=== PATIENT | male | born 1955 | race Caucasian/White ===

== ENCOUNTER 2018-12-14 07:11 | Day surgery (SDC) | payer BC ==
--- NOTE | 2018-11-16 17:32 | HISTORY AND PHYSICAL ---
DATE OF SERVICE: COLONOSCOPY HISTORY AND PHYSICAL DATE OF ADMISSION: 11/19/2018 HISTORY OF PRESENT ILLNESS: The patient is a 63-year-old white male who had initially seen on 04/06 after an episode of nausea, vomiting and diarrhea. He was due for a surveillance colonoscopy as he had a past history of adenomatous polyps, last colonoscopy being in 2010. He had been scheduled within the month, but wanted to reschedule to December. After today's visit, he was ultimately scheduled for 12/14. He reported on Thursday about 2 hours after having a rather large portion of Artichoke dip with green onion, potato chips, had some abdominal distention followed by diarrhea and gas. He denied any associated blood, but did have some cramping, mild in nature. He had no chills or fever and he has had no recent antibiotic usage. After discussion and offering of an earlier time then is scheduled time on the that was moved to this date. PAST MEDICAL HISTORY: Significant for adenomatous colonic polyps, removed in 2010. He has a history of multinodular goiter, on thyroid suppression since the . He has history of prostate cancer status post robotic surgery in 2007. He has a history of sleep apnea and reports that his machine is a little over 15 years ago and inquires about a new machine. Reports that he feels that his sleep is restful and denies daytime somnolence. PHYSICAL EXAMINATION: GENERAL: Reveals a pleasant overweight white male in no acute distress. Weight was actually down 1 pound from one month ago. VITAL SIGNS: Blood pressure 140/100 at the beginning of the interview 130/84. HEENT: Unremarkable. Sclerae nonicteric. CHEST: Clear to auscultation. CARDIOVASCULAR: Reveals a regular rate and rhythm without murmur, S3 or S4. ABDOMEN: Soft, supple. There is mild generalized discomfort to palpation without rebound or guarding. No distention is noted. No mass or organomegaly is noted. EXTREMITIES: Reveal no cyanosis, clubbing or edema. ASSESSMENT AND PLAN: 1. The patient was set up for surveillance colonoscopy due to intermittent diarrhea and past history of adenomatous colonic polyps. Did discuss lactose intolerance issues as well as fatty intolerance, he was strongly advised to avoid large lactose that food portions. Further recommendations pending colonoscopy evaluation. 2. Obstructive sleep apnea with antiquated equipment. The patient was referred to Dr. Danielle after discussion. Little over 20 minutes of my [id number] care time was spent not including dictation with another 15 minutes of staff time or greater setting of the procedure and going over the prep instructions and obtaining consultation with Dr. Danielle for likely outpatient sleep study to upgrade equipment that is quite old. We will see him back for followup in 4 months. 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
[~2018-12-14] VITALS: Ht 182.9 cm; Wt 103.4 kg
[~2018-12-14 07:11] MED LIST: BELLADONNA ALK; CETI10TA17; IRBE1TAB18 PO; LORA0.5T; LVT.112T; OLAN15TA3; [UNRECOGNIZED DRUG - OTHER]
[2018-12-14] MEDS ORDERED: D5 LR IV SOLUTION 1,000 ML IV ONE (07:14)
[2018-12-14] MEDS ORDERED: fentaNYL INJECTION 100 MCG/2 ML AMP ONE (07:30)
[2018-12-14] MEDS ORDERED: LIDOCAINE JELLY 2% 6 ML SYRINGE ONE (07:30)
[2018-12-14] MEDS ORDERED: MIDAZOLAM 2 MG/2 ML (VERSED) VIAL ONE ×2 (07:30)
--- NOTE | 2018-12-14 07:40 | Pre-Op Note & Conscious Sedat ---
Pre-Operative Progress Note H&P Reviewed The H&P was reviewed, patient examined and no changes noted. Date H&P Reviewed: Dec 14, 2018 Time H&P Reviewed: 07:30 Conscious Sedation Pre-Proced ASA Score 2 For ASA 3 and 4: Consider anesthesia and medical clearance. Also, for patients with a history of failed moderate sedation consider anesthesia. Airway Lungs Heart ASA score ASA 1: a normal healthy patient ASA 2: a patient with a mild systemic disease (mid diabetes, controlled hypertension, obesity ASA 3: a patient with a severe systemic disease that limits activity (angina , COPD, prior Myocardial infarction) ASA 4: a patient with an incapacitating disease that is a constant threat to life (CHF, renal failure) ASA 5: a moribund patient not expected to survive 24 hrs. (ruptured aneurysm) ASA 6: a declared brain- patient whose organs are being harvested. For emergent operations, add the letter E after the classification Mallampati Classification Grade 3 Sedation Plan Analgesia, Amnesia, Plan communicated to team members, Discussed options with patient/fam, Discussed risks with patient/fam The patient is an appropriate candidate to undergo the planned procedure, sedation, and anesthesia. The patient immediately re-assessed prior to indication. REGGEI MARTINES MD Dec 14, 2018 07:40
[2018-12-14] MEDS ORDERED: D5 LR IV SOLUTION 1,000 ML IV STA (07:49)
[2018-12-14] MEDS ORDERED: CETI10CA PO (07:58)
[2018-12-14] MEDS ORDERED: DOXY100C2 PO (07:58)
[2018-12-14] MEDS ORDERED: [UNRECOGNIZED DRUG - CODE] PO (07:58)
[2018-12-14] MEDS ORDERED: LIDOCAINE JELLY 2% 6 ML SYRINGE MM PRN (08:00)
[2018-12-14] MEDS ORDERED: fentaNYL INJECTION 100 MCG/2 ML AMP IVP ONE (08:00)
[2018-12-14] MEDS ORDERED: MIDAZOLAM 2 MG/2 ML (VERSED) VIAL IVP ONE (08:00)
[2018-12-14 08:02] VITALS: BP 155/90
[2018-12-14 08:10] VITALS: BP 120/69
[2018-12-14 08:50] VITALS: BP 128/88
[2018-12-14 09:12] VITALS: BP 128/88
== END 2018-12-14 09:12 | disposition home or self-care (01) ==
LOC: ENDO 07:11
PROVIDERS: ATTEND Internal Medicine
DX: Z12.11 Encounter for screening for malignant neoplasm of colon (principal); R19.7 Diarrhea, unspecified; Z86.010 Personal history of colon polyps; E04.2 Nontoxic multinodular goiter; G47.33 Obstructive sleep apnea (adult) (pediatric); Z85.46 Personal history of malignant neoplasm of prostate

== ENCOUNTER 2019-10-04 09:30 | Outpatient (CLI) | payer BC ==
[~2019-10-04] VITALS: Ht 180 cm; Wt 100.0 kg
[~2019-10-04 09:30] MED LIST changes: -CETI10TA17 PO; -LEVO112T55 PO; -LORA0.5T PO; -MONT10TA24 PO; -OLAN15TA19 PO; -TELM1TAB28 PO
[2019-10-04] MEDS ORDERED: OLAN15TA19 PO (09:48)
[2019-10-04] MEDS ORDERED: LEVO112T55 PO (09:48)
[2019-10-04] MEDS ORDERED: CETI10TA17 PO (09:48)
[2019-10-04] MEDS ORDERED: MONT10TA24 PO (09:48)
[2019-10-04] MEDS ORDERED: LORA0.5T PO (09:48)
[2019-10-04] MEDS ORDERED: TELM1TAB28 PO (09:48)
[2019-10-11] MEDS ORDERED: TRM50T PO (09:19)
== END 2019-10-04 09:55 | disposition home or self-care (01) ==
LOC: PREOP 09:30
PROVIDERS: ATTEND Urology
DX: Z01.818 Encounter for other preprocedural examination (principal)

== ENCOUNTER → 2019-10-04 | Outpatient (CLI) | payer BC ==
[~2019-10-04] MED LIST changes: +CETI10CA PO; +CETI10TA17 PO; +DOXY100C2 PO; +LEVO112T55 PO; +LORA0.5T PO; +MONT10TA24 PO; +OLAN15TA19 PO; +TELM1TAB28 PO; +[UNRECOGNIZED DRUG - CODE] PO
--- NOTE | 2019-10-04 10:05 | Diagnostic Imaging Report ---
PROCEDURE: US Scrotum. TECHNIQUE: Multiple real-time grayscale images were obtained over the scrotum in various projections bilaterally. INDICATION: Spermatocele. FINDINGS: Right testicle measures 5.3 x 2.9 x 3.2 cm and left testicle measures 4.7 x 2.8 x 3.5 cm. Both testicles demonstrate homogeneous echogenicity and normal blood flow. There is 1 cm right epididymal head cyst. There is a complex loculated fluid collection along the medial aspect left testicle measuring approximately 7.4 x 4.5 x 6.1 cm. IMPRESSION: Large complex fluid collection in left hemiscrotum medial to the testicle. This is suspect for loculated complex hydrocele. Recommend clinical correlation. 1 cm right epididymal head cyst. No evidence of discrete testicular mass or torsion. Dictated by: Dictated on workstation # [id number]
== END ==
LOC: RAD 08:19
PROVIDERS: ATTEND Urology
DX: N50.3 Cyst of epididymis (principal); N43.40 Spermatocele of epididymis, unspecified
CPT/HCPCS: 76870

== ENCOUNTER 2019-10-11 06:13 | Day surgery (SDC) | payer BC ==
[2019-10-11] VITALS (10 sets, daily range): BP systolic 111–152; BP diastolic 64–96
[~2019-10-11] VITALS: Ht 180.3 cm; Wt 97.0 kg
[~2019-10-11 06:13] MED LIST changes: +CETI10TA17 PO; +LEVO112T55 PO; +LORA0.5T PO; +MONT10TA24 PO; +OLAN15TA19 PO; +TELM1TAB28 PO
[2019-10-11] MEDS ORDERED: ceFAZolin INJECTION 1,000 MG in WATER (STERILE) FOR INJECTION 10 ML IV ONE (06:30)
[2019-10-11] MEDS ORDERED: fentaNYL INJECTION 100 MCG/2 ML AMP ONE (06:57)
[2019-10-11] MEDS ORDERED: MIDAZOLAM 2 MG/2 ML (VERSED) VIAL ONE (06:58)
--- NOTE | 2019-10-11 07:00 | Progress Note-Pre Operative ---
Pre-Operative Progress Note H&P Reviewed The H&P was reviewed, patient examined and no changes noted. Date Seen by Provider: Oct 11, 2019 Time Seen by Provider: 07:00 Date H&P Reviewed: Oct 11, 2019 Time H&P Reviewed: 07:00 Pre-Operative Diagnosis: LT SPERMATOCELE MUKUL TORRES MD Oct 11, 2019 07:00 POS
--- NOTE | 2019-10-11 07:02 | Progress Note-Post Operative ---
Post-Operative Progess Note Surgeon (s)/Waiter/Waitress Room Service (s) Surgeon MUKUL TORRES MD Waiter/Waitress Room Service: NONE Pre-Operative Diagnosis LT SPERMATOCELE Post-Operative Diagnosis SAME Procedure & Operative Findings Date of Procedure 10/11/19 Procedure Performed/Findings LT SPERMATOCELECTOMY Anesthesia Type GENERAL Estimated Blood Loss Estimated blood loss (mL): LESS THAN 50CC Specimens/Packing Specimens Removed LT SPERMATOCELE Packin/# SUZANNA DRAIN MUKUL TORRES MD Oct 11, 2019 07:02 POS
--- NOTE | 2019-10-11 07:05 | Discharge Inst-Urology ---
Discharge Inst-Urology Reconcile Patient Problems Problems Reviewed?: Yes Patient Instructions/Follow Up Plan/Assessment/Instructions Please make appointment to been seen in office in 2 weeks. Rest till then and wear scrotal support Showers, no bath Keep bowels soft and moving Come to office tomorrow 9am to dc drain, can showers after that Increase oral fluids for 48 hours and then as needed. Diet as tolerated. If questions or concerns contact your physician Or seek help at emergency department. MUKUL TORRES MD Oct 11, 2019 07:05 POS
[2019-10-11] MEDS: LACTATED RINGERS 1,000 ML IV PRN ×2 (07:13→07:45)
[2019-10-11] MEDS ORDERED: proPOfol 200 MG/20 ML (DIPRIVAN) VIAL IV ONE (07:43)
[2019-10-11] MEDS ORDERED: PHENYLEPHRINE 100 MCG/ML 10 ML (ANESTHESIA) SYR ONE (07:43)
[2019-10-11] MEDS ORDERED: ONDANSETRON 4 MG/2 ML (SDV) Z0FRAN ONE (07:43)
[2019-10-11] MEDS ORDERED: LIDOCAINE PF 2% 5 ML (XYLOCAINE) VIAL ONE (07:43)
[2019-10-11] MEDS ORDERED: SEVOFLURANE (ULTANE) 15 ML INHAL SOLN ONE (07:43)
[2019-10-11] MEDS ORDERED: MEPERIDINE (DEMEROL) INJ 50 MG/ML IVP ONE (08:30)
[2019-10-11] MEDS ORDERED: fentaNYL INJECTION 100 MCG/2 ML AMP IVP ONE (08:30)
[2019-10-11] MEDS ORDERED: morphine INJ 10 MG/ML 1ML (SYR OR VIAL) IVP ONE (08:30)
[2019-10-11] MEDS ORDERED: ONDANSETRON 4 MG/2 ML (SDV) Z0FRAN IVP PRN (08:30)
[2019-10-11] MEDS ORDERED: TRAM50TA2 PO (09:19)
[2019-10-11] MEDS ORDERED: CEPH-507 PO (09:19)
--- NOTE | 2019-10-11 12:30 | OPERATIVE REPORT ---
DATE OF SERVICE: 10/11/2019 PREOPERATIVE DIAGNOSIS: Large left spermatocele. POSTOPERATIVE DIAGNOSIS: Large left spermatocele. OPERATION PERFORMED: Left spermatocelectomy. SURGEON: Miguel Angel Torres MD ANESTHESIA: General. COMPLICATIONS: None. DESCRIPTION OF PROCEDURE: Under satisfactory general anesthesia, the patient in supine position, genitalia, abdomen and thigh were prepped and draped in the usual sterile fashion. Incision was made in the medial raphae, carried through the left scrotal compartment. The testicle was delivered along with the large spermatocele. The spermatocele was dissected carefully away from the spermatic cord vessels and the epididymis. It was excised completely and the attachment was ligated with 3-0 chromic catgut. Bleeders were cauterized and hemostasis was complete. The testicle was replaced into the scrotum that was drained with a quarter of an inch [place] drain, brought through a separate stab wound in the bottom of the scrotum, secured in position with 4-0 chromic catgut. Closure was performed in two layers, the dartos with running chromic catgut and the skin was interrupted 4-0 Vicryl. Telfa, fluff and scrotal support was applied. Estimated blood loss was less than 50 mL, none of which was replaced. Needle, sponge, instrument counts correct x2. Job ID: [id number] DocumentID: [id number] Dictated Date: 10/11/2019 08:16:12 Yardage Control Clerk Date: 10/11/2019 12:29:45 Dictated By: MIGUEL ANGEL TORRES MD
--- NOTE | 2019-10-11 14:51 | Anesthesia-General Post-Op ---
General Patient Condition Mental Status/LOC: Same as Preop Cardiovascular: Satisfactory Nausea/Vomiting: Absent Respiratory: Satisfactory Pain: Controlled Complications: Absent Post Op Complications Complications None Follow Up Care/Instructions Patient Instructions None needed. Anesthesia/Patient Condition Patient Condition Patient is doing well, no complaints, stable vital signs, no apparent adverse anesthesia problems. No complications reported per nursing. JACKSON MONTAÑO CRNA Oct 11, 2019 14:51 POS
== END 2019-10-11 10:43 | disposition home or self-care (01) ==
LOC: SDC 06:13
PROVIDERS: ATTEND Urology
DX: N43.41 Spermatocele of epididymis, single (principal); N52.9 Male erectile dysfunction, unspecified; I25.10 Atherosclerotic heart disease of native coronary artery without angina pectoris; I10 Essential (primary) hypertension; Z88.2 Allergy status to sulfonamides; G47.33 Obstructive sleep apnea (adult) (pediatric); F41.9 Anxiety disorder, unspecified; Z79.899 Other long term (current) drug therapy; Z85.46 Personal history of malignant neoplasm of prostate; Z11.2 Encounter for screening for other bacterial diseases
CPT/HCPCS: 87081